=== PATIENT | female | born 1985 | race Caucasian/White ===

== ENCOUNTER 2019-05-21 21:31 | Emergency (ER) | payer OTHER ==
[2019-05-21 22:32] VITALS: BMI 32.4
--- NOTE | 2019-05-22 00:11 | PDOC ---
History of Present Illness - General Chief Complaint: Hematuria Stated Complaint: HEMATURIA Past History - Past Medical History Allergies/Adverse Reactions: Allergies Allergy/AdvReac Type Severity Reaction Status Date / Time Cat/Feline Product Allergy Unknown Verified 05/21/19 22:24 Derivatives cats Allergy Mild sneezing Uncoded 05/21/19 22:24 dust Allergy Mild congestion Uncoded 05/21/19 22:24 pollen Allergy Mild head Uncoded 05/21/19 22:24 congestion Home Medications: Ambulatory Orders Cetirizine HCl [Zyrtec -] 5 mg PO PRN PRN 12/02/14 Erythromycin 0.5% Eye Ointment [Erythromycin 0.5% Eye Ointment -] 1 applic OD TID #1 tube 12/02/14 Metronidazole 500 mg PO BID #14 tablet 12/03/14 Asthma: No Cancer: No Cardiac Disorders: No COPD: No Diabetes: No HTN: No Seizures: No Thyroid Disease: No - Psycho Social/Smoking Cessation Hx Smoking Status: No Smoking History: Never smoked Have you smoked in the past 12 months: No Number of Cigarettes Smoked Daily: 0 Information on smoking cessation initiated: No Hx Alcohol Use: No Drug/Substance Use Hx: No Hx Substance Use Treatment: No *Physical Exam - Vital Signs Last Vital Signs Temp Pulse Resp BP Pulse Ox 98.5 F 89 18 113/77 100 05/21/19 22:21 05/21/19 22:21 05/21/19 22:21 05/21/19 22:21 05/21/19 22:21
[2019-05-22 01:20] LABS: EPI CELLS 0.3 /HPF (0-5/HPF); HYALINE CASTS 12 /lpf (0-8); PH,URINE 8.5 (5.0-8.0); URINE APPEARANCE TURBID; URINE BILIRUBIN NEGATIVE (NEGATIVE); URINE COLOR YELLOW; URINE GLUCOSE (UA) NEGATIVE (NEGATIVE); URINE KETONE NEGATIVE (NEGATIVE); URINE LEUK ESTERASE 2+ (NEGATIVE); URINE NITRITE NEGATIVE (NEGATIVE); URINE PROTEIN 1+ (NEGATIVE); URINE RBC 152 /hpf (0-4); URINE UROBILINOGEN 0.2 mg/dL (0.2-1.0); URINE WBC 180 /hpf (0-5)
[2019-05-22] MEDS ORDERED: SULFAMETHOXAZOLE/TRIMETHOPRIM 800MG/160MG D.S. TABLET PO ONE (01:53)
[2019-05-22] MEDS ORDERED: SULFAMETHOXAZOLE/TRIMETHOPRIM 800MG/160MG D.S. TABLET ONE (02:07)
--- NOTE | 2019-05-22 02:09 | PDOC ---
Documentation entered by Lucina Mendez SCRIBE, acting as scribe for Dina Perla MD. Dina Perla MD: This documentation has been prepared by the Vanessa elizabeth Nirvannie, SCRIBE, under my direction and personally reviewed by me in its entirety. I confirm that the documentation accurately reflects all work, treatment, procedures, and medical decision making performed by me. History of Present Illness - General Chief Complaint: Hematuria Stated Complaint: HEMATURIA Time Seen by Provider: 05/22/19 00:11 History Source: Patient Exam Limitations: No Limitations - History of Present Illness Initial Comments: 05/22/19 00:19 The patient is a 33 year old female with no significant past medical history, who presents to the emergency department with 1 day of dysuria and hematuria. As per patient, she noticed her hematuria. She notes taking an at home test just prior to her visit which was negative. She denies any pelvic cramping or abdominal pain. She denies recent fevers, chills, headache or dizziness. She denies recent nausea, vomiting, diarrhea or constipation. She denies recent chest pain or shortness of breath. Allergies: Cats, Dust, Pollen Past History - Past Medical History Allergies/Adverse Reactions: Allergies Allergy/AdvReac Type Severity Reaction Status Date / Time Cat/Feline Product Allergy Unknown Verified 05/21/19 22:24 Derivatives cats Allergy Mild sneezing Uncoded 05/21/19 22:24 dust Allergy Mild congestion Uncoded 05/21/19 22:24 pollen Allergy Mild head Uncoded 05/21/19 22:24 congestion Home Medications: Ambulatory Orders Cetirizine HCl [Zyrtec -] 5 mg PO PRN PRN 12/02/14 Erythromycin 0.5% Eye Ointment [Erythromycin 0.5% Eye Ointment -] 1 applic OD TID #1 tube 12/02/14 Metronidazole 500 mg PO BID #14 tablet 12/03/14 Sulfamethoxazole/Trimethoprim [Bactrim Ds -] 1 tab PO BID #20 tablet 05/22/19 Asthma: No Cancer: No Cardiac Disorders: No COPD: No Diabetes: No HTN: No Seizures: No Thyroid Disease: No - Psycho Social/Smoking Cessation Hx Smoking Status: No Smoking History: Never smoked Have you smoked in the past 12 months: No Number of Cigarettes Smoked Daily: 0 Information on smoking cessation initiated: No Hx Alcohol Use: No Drug/Substance Use Hx: No Hx Substance Use Treatment: No Review of Systems - Review of Systems Comments:: 05/22/19 00:20 CONSTITUTIONAL: Absent: fever, no chills, no fatigue EYES: Absent: visual changes ENT: Absent: ear pain, no sore throat CARDIOVASCULAR: Absent: chest pain, no palpitations RESPIRATORY: Absent: cough, no SOB GI: Absent: abdominal pain, no nausea, no vomiting, no constipation, no diarrhea GENITOURINARY: Present: Dysuria. Hematuria MUSKULOSKELETAL: Absent: back pain, no arthralgia, no myalgia SKIN: Absent: rash NEURO: Absent: headache All Other Systems: Reviewed and Negative *Physical Exam - Vital Signs Last Vital Signs Temp Pulse Resp BP Pulse Ox 98.5 F 89 18 113/77 100 05/21/19 22:21 05/21/19 22:21 05/21/19 22:21 05/21/19 22:21 05/21/19 22:21 - Physical Exam 05/22/19 00:21 GENERAL: Well-appearing, well-nourished. No apparent distress. HEENT: Normocephalic, atraumatic. PERRL, EOM intact. CARDIOVASCULAR: Normal S1, S2. Regular rate and rhythm. PULMONARY: Clear to auscultation bilaterally. ABDOMEN: Soft, non-distended, non-tender. EXTREMITIES: Normal ROM in all four extremities. No gross deformities. SKIN: Warm, dry. No rash NEUROLOGICAL: No focal neurological deficits. ED Treatment Course - ADDITIONAL ORDERS Additional order review: Laboratory Results 05/22/19 05/22/19 01:04 01:04 Urine Color Yellow Urine Appearance Turbid Urine pH 8.5 H Ur Specific [place] 1.022 Urine Protein 1+ H Urine Glucose (UA) Negative Urine Ketones Negative Urine Blood 2+ H Urine Nitrite Negative Urine Bilirubin Negative Urine Urobilinogen 0.2 Ur Leukocyte Esterase 2+ H Urine WBC (Auto) 180 Urine RBC (Auto) 152 Urine Casts (Auto) 12 U Epithel Cells (Auto) 0.3 Urine Bacteria (Auto) 32.0 Urine HCG, Qual Negative Medical Decision Making - Medical Decision Making 05/22/19 01:58 33-year-old female with a history of hematuria presents today Negative test UA shows 180 WBCs and 2+ leukocytes patient will be started on antibiotics 05/22/19 01:59 imp UTI Discharge - Discharge Information Problems reviewed: Yes Clinical Impression/Diagnosis: UTI (urinary tract infection) Qualifiers: Urinary tract infection type: site unspecified Hematuria presence: with hematuria Qualified Code(s): N39.0 - Urinary tract infection, site not specified ; R31.9 - Hematuria, unspecified Condition: Stable Disposition: HOME - Admission No - Additional Discharge Information Prescriptions: Sulfamethoxazole/Trimethoprim [Bactrim Ds -] 1 tab PO BID #20 tablet - Follow up/Referral - Patient Discharge Instructions Patient Printed Discharge Instructions: DI for Urinary Tract Infection (UTI) Additional Instructions: please mixing picker tender your medications at [facility] pharmacy - Post Discharge Activity
[2019-05-22 02:11] VITALS: BP 116/84; PULSE 88; TEMP 98.1
== END 2019-05-22 02:12 | disposition home or self-care (01) ==
LOC: JER 21:31
DX: N39.0 Urinary tract infection, site not specified (principal); R31.9 Hematuria, unspecified; Z91.048 Other nonmedicinal substance allergy status
CPT/HCPCS: 81003; 84703; 99282-25

== ENCOUNTER 2022-07-01 11:10 | Emergency (ER) | payer OTHER ==
[2022-07-01 11:14] VITALS: BP 137/76; PULSE 80; RESP 18; TEMP 98.8; BMI 35.6
[2022-07-01] MEDS ORDERED: ACETAMINOPHEN 500 MG TABLET (FP) ONE (11:56)
[2022-07-01] MEDS ORDERED: ACETAMINOPHEN 500 MG TABLET (FP) PO ONE (11:56)
[2022-07-01 12:48] LABS: BASO % 0.6 % (0-2.0); EOS % 0.4 % (0-4.5); HEMATOCRIT 35.2 % (32.4-45.2); HEMOGLOBIN 11.9 GM/dL (10.7-15.3); LYMPH % 25.5 % (8-40); MCH 27.9 pg (25.7-33.7); MEAN CELL VOLUME 82.2 fl (80-96); MEAN PLT VOLUME 7.5 fl (7.5-11.1); MONO % 5.6 % (3.8-10.2); NEUT % 67.9 % (42.8-82.8); PLATELET COUNT 400 10^3/uL (134-434); RBC 4.28 M/mm3 (3.60-5.2); RDW 13.6 % (11.6-15.6); WHITE BLOOD COUNT 9.9 K/mm3 (4.0-10.0)
[2022-07-01 12:56] LABS: EPI CELLS >36 /uL (0-25.1); HYALINE CASTS 11 /uL (0-3.1); URINE APPEARANCE TURBID; URINE BACTERIA 21 /uL (0-1359); URINE BILIRUBIN 1+ (NEGATIVE); URINE COLOR RED; URINE GLUCOSE (UA) NEGATIVE (NEGATIVE); URINE KETONE 2+ (NEGATIVE); URINE LEUK ESTERASE 1+ (NEGATIVE); URINE NITRITE NEGATIVE (NEGATIVE); URINE PROTEIN 3+ (NEGATIVE); URINE RBC 25562 /uL (0-23.9); URINE UROBILINOGEN 0.2 mg/dL (0.2-1.0); URINE WBC 57 /uL (0-25.8)
[2022-07-01 13:19] LABS: BLOOD UREA NITROGEN 8.3 mg/dL (7-18); CALCIUM 9.2 mg/dL (8.5-10.1)
[2022-07-01 13:23] LABS: CREATININE 0.6 mg/dL (0.55-1.3)
== END 2022-07-01 15:08 | disposition home or self-care (01) ==
LOC: JER 11:10
DX: O46.91 Antepartum hemorrhage, unspecified, first trimester (principal); Z3A.01 Less than 8 weeks gestation of pregnancy
CPT/HCPCS: 36415; 76817-TC; 80048; 81003; 84702; 84703; 85025; 86850; 86900; 86901; 87086; 99284-25

== ENCOUNTER 2022-07-03 09:48 | Emergency (ER) | payer OTHER ==
[2022-07-03 09:56] VITALS: RESP 18; BMI 35.6
[2022-07-03 11:04] LABS: BASO % 0.7 % (0-2.0); EOS % 1.3 % (0-4.5); HEMATOCRIT 35.7 % (32.4-45.2); LYMPH % 35.6 % (8-40); MCH 27.4 pg (25.7-33.7); MCHC 33.5 g/dl (32.0-36.0); MEAN CELL VOLUME 81.9 fl (80-96); MEAN PLT VOLUME 7.7 fl (7.5-11.1); MONO % 5.7 % (3.8-10.2); NEUT % 56.7 % (42.8-82.8); PLATELET COUNT 437 10^3/uL (134-434); RBC 4.36 M/mm3 (3.60-5.2); RDW 13.6 % (11.6-15.6)
[2022-07-03 11:21] LABS: EPI CELLS 1 /uL (0-25.1); HYALINE CASTS 0 /uL (0-3.1); URINE APPEARANCE CLOUDY; URINE BILIRUBIN 1+ (NEGATIVE); URINE COLOR RED; URINE GLUCOSE (UA) NEGATIVE (NEGATIVE); URINE KETONE NEGATIVE (NEGATIVE); URINE LEUK ESTERASE 2+ (NEGATIVE); URINE NITRITE POSITIVE (NEGATIVE); URINE PROTEIN 3+ (NEGATIVE); URINE RBC 90 /uL (0-23.9); URINE UROBILINOGEN 0.2 mg/dL (0.2-1.0); URINE WBC 3 /uL (0-25.8)
[2022-07-03 11:27] LABS: CALCIUM 9.3 mg/dL (8.5-10.1)
[2022-07-03 11:28] LABS: BLOOD UREA NITROGEN 8.9 mg/dL (7-18)
[2022-07-03 11:31] LABS: CREATININE 0.8 mg/dL (0.55-1.3)
[2022-07-03] MEDS ORDERED: CEPHALEXIN MONOHYDRATE 500 MG CAPSULE (UD) PO ONE (11:49)
[2022-07-03] MEDS ORDERED: CEPHALEXIN MONOHYDRATE 500 MG CAPSULE (UD) ONE (11:50)
[2022-07-03 12:21] VITALS: BP 115/70; PULSE 69; TEMP 98
[2022-07-03 15:22] LABS: URINE BACTERIA 7.7 /uL (0-1359)
== END 2022-07-03 12:21 | disposition home or self-care (01) ==
LOC: JER 09:48
DX: O03.9 Complete or unspecified spontaneous abortion without complication (principal); Z3A.01 Less than 8 weeks gestation of pregnancy
CPT/HCPCS: 36415; 80048; 81003; 84702; 85025; 86850; 86900; 86901; 87086; 99283-25